=== PATIENT | female | born 1955 | race Caucasian/White ===

== ENCOUNTER 2017-03-15 01:37 | Inpatient (IN) | payer BC ==
[~2017-03-15] VITALS: Ht 180.3 cm; Wt 72.6 kg
[2017-03-15 02:14] LABS: Basophils # (auto) 0.1 uL; Basophils % (auto) 0.6 % (0.0-2.0); Eosinophils # (auto) 0.1 uL; Eosinophils % (auto) 0.4 % (0.0-7.0); Lymphocytes # (auto) 2.6 uL; Lymphocytes % (auto) 16.6 % (10.0-50.0); Monocytes # (auto) 0.4 uL; Neutrophils # (auto) 12.4 uL
[2017-03-15 02:15] LABS: Hemoglobin 13.9 g/dL (12.2-16.2); Mean Corpuscular Hemoglobin 26.1 pg (28.0-32.0); Mean Corpuscular Hgb Conc. 30.9 g/dL (32.0-36.0); Mean Corpuscular Volume 84.4 fL (80.0-100.0); Monocytes % (auto) 2.3 % (0.0-12.0); Neutrophils % (auto) 80.1 % (37.0-80.0); Platelet Count (auto) 133 10^3/uL (140-450); Red Cell Distribution Width 16.1 % (11.8-14.3); White Blood Cell 15.5 10^3/uL (4.4-10.8)
[2017-03-15 02:43] LABS: Albumin 3.8 g/dL (3.4-5.0); Anisocytosis Slight; BUN/Creatinine Ratio 15.6; Burr Cells FEW; Calcium 9.4 mg/dL (8.5-10.1); Ovalocytes FEW; Platelet Estimate Decreased; Potassium 3.4 mmol/L (3.5-5.1); Sickle Cells FEW
[2017-03-15 02:45] LABS: Bilirubin, Total 0.4 mg/dL (0.2-1.0); Total Protein 8.4 g/dL (6.4-8.2)
[2017-03-15] MEDS ORDERED: SODIUM CHLORIDE 0.9% 1,000 ML IV ONE (03:00)
[2017-03-15] MEDS ORDERED: ONDANSETRON HCL 4 MG/2 ML VIAL IV ONE (03:00)
[2017-03-15] MEDS ORDERED: HYDROmorphone HCL 2 MG/ML VL IV ONE (03:00)
[2017-03-15] MEDS ORDERED: metroNIDAZOLE 500MG/100ML 100 ML IV ONE (04:30)
[2017-03-15] MEDS ORDERED: cefTRIAXone 1GM/50ML D5W 50 ML IV ONE (04:30)
[2017-03-15] MEDS ORDERED: SODIUM CHLORIDE 0.9% 1,000 ML IV SCH (05:41)
[2017-03-15] MEDS ORDERED: POTASSIUM CHL 20MEQ/50ML 50 ML IV ONE (05:45)
[2017-03-15] MEDS ORDERED: NITROGLYCERIN 0.4 MG SL TAB SL PRN (05:45)
[2017-03-15] MEDS ORDERED: HYDROcodone-ACET 5/325MG TAB PO PRN (05:45)
[2017-03-15] MEDS ORDERED: MORPHINE SULF INJ 2 MG/ML SYRINGE 1ML IV PRN ×2 (05:45)
[2017-03-15] MEDS ORDERED: ONDANSETRON HCL 4 MG/2 ML VIAL IV PRN (05:45)
[2017-03-15] MEDS ORDERED: ACETAMINOPHEN 325 MG TAB PO PRN (05:45)
[2017-03-15] MEDS ORDERED: PANTOPRAZOLE 40 MG/10 ML VIAL IV ONE (05:45)
[2017-03-15] MEDS ORDERED: TEMAZEPAM 15 MG CAP PO PRN (05:45)
[2017-03-15] MEDS ORDERED: cefTRIAXone 1GM/50ML D5W 50 ML IV SCH (09:00)
[2017-03-15] MEDS ORDERED: PANTOPRAZOLE 40 MG/10 ML VIAL IV SCH (10:00)
[2017-03-15] MEDS ORDERED: ENOXAPARIN SOD 40 MG/0.4 ML SYRINGE SC SCH (10:00)
[2017-03-15] MEDS ORDERED: GASTROGRAFIN 120 ML SOL ONE (10:30)
[2017-03-15 12:33] VITALS: BP 143/88
== END 2017-03-15 12:37 | disposition short-term general hospital (02) | DRG 390 ==
LOC: EDSEX 01:37 → EDBD 01:37 → ER 01:37 → OVERFLOW 01:38 → TELE 06:17
PROVIDERS: ADMIT Nurse Practitioner; ATTEND Internal Medicine Geriatric Medicine
DX: K56.2 Volvulus (principal); D72.829 Elevated white blood cell count, unspecified; E87.6 Hypokalemia; K21.9 Gastro-esophageal reflux disease without esophagitis
CPT/HCPCS: 36415; 74176; 74250; 80053; 82150; 83690; 85025; 87040; 94761; 96361; 96365; 96367; 96375; C9113; J0696; J2405; J3490